=== PATIENT | female | born 2005 | race Caucasian/White ===

== ENCOUNTER → 2024-02-22 | Outpatient (CLI) | payer BC, OTHER ==
[2024-02-22 16:01] LABS: HEMOGLOBIN A1c 4.9 % (4.0-6.0)
[2024-02-22 16:20] LABS: FREE T4 1.27 NG/DL (0.83-1.43); PROLACTIN 7.58 NG/ML; THYROID STIMULATING HORMONE 1.452 uIU/ML (0.48-4.17)
== END ==
LOC: M PLALAB 12:27
PROVIDERS: ATTEND Nurse Practitioner Family
DX: N92.6 Irregular menstruation, unspecified (principal)